=== PATIENT | male | born 1980 | race Caucasian/White ===

== ENCOUNTER 2016-10-03 11:52 | Emergency (ER) | payer OTHER ==
[2016-10-03] MEDS ORDERED: SODIUM CHLORIDE 0.9% 1,000 ML IV ONE (12:51)
[2016-10-03 12:56] LABS: Anisocytosis Slight; Basophils % (A) 0 %; CH 25.4; CHCM 31.8; Eosinophils # (A) 0.6 k/uL (0-0.7); Eosinophils % (A) 5 %; HCT 44.9 % (39.0-53.0); HDW 2.83; HGB 14.2 gm/dL (13.0-17.5); Hypochromasia Slight; Luc # (Auto) 0.27; Luc % (Auto) 2; Lymphocytes # (A) 1.6 k/uL (1.0-4.8); Lymphocytes % (A) 13 %; MCH 25.4 pg (25.0-35.0); MCHC 31.7 g/dL (31.0-37.0); MCV 80.4 fL (80.0-100.0); Mean Platelet Volume 6.7; Monocytes # (A) 0.9 k/uL (0-1.0); Monocytes % (A) 7 %; Neutrophils # (A) 8.9 k/uL (1.3-7.7); Neutrophils % (A) 73 %; RBC 5.59 m/uL (4.30-5.90); RDW 16.1 % (11.5-15.5); WBC 12.3 k/uL (3.8-10.6); WBC (Perox) 12.34
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
[2016-10-03 13:02] LABS: Anion Gap 11 mmol/L; Blood Urea Nitrogen 8 mg/dL (9-20); Calcium 9.9 mg/dL (8.4-10.2); Carbon Dioxide 28 mmol/L (22-30); Chloride 101 mmol/L (98-107); Glucose 114 mg/dL (74-99); Non-African American GFR(MDRD) >60 (>60 ml/min/1.73 sqM); Potassium 4.4 mmol/L (3.5-5.1); Sodium 140 mmol/L (137-145)
[2016-10-03 13:38] LABS: Appearance,Urine Clear (Clear); Bilirubin,Urine Negative (Negative); Glucose,Urine (UA) Negative (Negative); Ketones,Urine Negative (Negative); Leukocyte Esterase,Urine Negative (Negative); Nitrite,Urine Negative (Negative); Protein,Urine Negative (Negative); Specific Gravity,Urine 1.015 (1.001-1.035); UA Billing (MACRO vs. MICRO) CHEM; Urobilinogen,Urine <2.0 mg/dL (<2.0)
[2016-10-03 15:06] VITALS: BP 142/84; PULSE 100; RESP 18; TEMP 98.9
== END 2016-10-03 15:07 | disposition home or self-care (01) ==
LOC: EC 11:52
DX: T40.601A Poisoning by unspecified narcotics, accidental (unintentional), initial encounter (principal); I10 Essential (primary) hypertension; F41.9 Anxiety disorder, unspecified; Z87.891 Personal history of nicotine dependence; Z79.899 Other long term (current) drug therapy; Z88.0 Allergy status to penicillin; Z91.013 Allergy to seafood
CPT/HCPCS: 36415; 80048; 80306; 81003; 85025; 96360; 96361; 99284

== ENCOUNTER 2017-12-22 02:02 | Emergency (ER) | payer OTHER ==
[2017-12-22] MEDS ORDERED: ONDANSETRON 4 MG/2 ML VIAL IVP STA (02:21)
[2017-12-22] MEDS ORDERED: SODIUM CHLORIDE 0.9% 1,000 ML IV STA ×2 (02:21)
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
[2017-12-22 03:12] VITALS: BP 143/86; PULSE 90; RESP 16; TEMP 98.8
[2017-12-22 03:20] LABS: Basophils % (A) 0 %; Eosinophils # (A) 0.3 k/uL (0-0.7); Eosinophils % (A) 3 %; HCT 41.2 % (39.0-53.0); HGB 14.5 gm/dL (13.0-17.5); Lymphocytes % (A) 10 %; MCH 30.2 pg (25.0-35.0); MCHC 35.1 g/dL (31.0-37.0); Mean Platelet Volume 6.3; Monocytes # (A) 0.5 k/uL (0-1.0); Monocytes % (A) 5 %; Neutrophils # (A) 8.6 k/uL (1.3-7.7); Neutrophils % (A) 82 %; Platelet Count 272 k/uL (150-450); RBC 4.79 m/uL (4.30-5.90); RDW 15.8 % (11.5-15.5); WBC 10.6 k/uL (3.8-10.6)
[2017-12-22 03:26] LABS: ALT 26 U/L (21-72); AST 32 U/L (17-59); Albumin 4.6 g/dL (3.5-5.0); Alkaline Phosphatase 82 U/L (38-126); Anion Gap 18 mmol/L; Blood Urea Nitrogen 21 mg/dL (9-20); Calcium 10.7 mg/dL (8.4-10.2); Carbon Dioxide 26 mmol/L (22-30); Chloride 99 mmol/L (98-107); Glucose 91 mg/dL (74-99); Lipase 134 U/L (23-300); Sodium 143 mmol/L (137-145); Total Bilirubin 0.5 mg/dL (0.2-1.3); Total Protein 7.9 g/dL (6.3-8.2)
[2017-12-22 03:28] LABS: Appearance,Urine Clear (Clear); Bilirubin,Urine 1+ (Negative); Blood,Urine Negative (Negative); Color,Urine Yellow; Glucose,Urine (UA) Negative (Negative); Hyaline Casts,Urine 38 /lpf (0-2); Ketones,Urine 3+ (Negative); Leukocyte Esterase,Urine Negative (Negative); Mucus,Urine Occasional /hpf; Nitrite,Urine Negative (Negative); Protein,Urine 1+ (Negative); RBC,Urine 1 /hpf (0-5); Specific Gravity,Urine 1.038 (1.001-1.035); WBC,Urine 1 /hpf (0-5)
[2017-12-22 03:32] LABS: Amylase 314 U/L (30-110)
--- NOTE | 2017-12-22 04:14 | XR ---
EXAM: XR Abdomen, 1 View CLINICAL HISTORY: pain TECHNIQUE: Frontal supine view of the abdomen/pelvis. COMPARISON: No relevant prior studies available. FINDINGS: Gastrointestinal tract: Unremarkable. No dilation. Moderate amount of stool in the colon Bones/joints: Unremarkable. IMPRESSION: Normal abdominal x-ray.
[2017-12-22] MEDS ORDERED: ONDANSETRON 4 MG ODT STARTER PACK 2 TAB BTL PO STA (04:39)
== END 2017-12-22 04:59 | disposition home or self-care (01) ==
LOC: EC 02:02
DX: R11.2 Nausea with vomiting, unspecified (principal); R74.8 Abnormal levels of other serum enzymes; I10 Essential (primary) hypertension; F32.9 Major depressive disorder, single episode, unspecified; F17.200 Nicotine dependence, unspecified, uncomplicated; Z79.899 Other long term (current) drug therapy; Z88.0 Allergy status to penicillin; Z91.013 Allergy to seafood
CPT/HCPCS: 36415; 80053; 82150; 83690; 85025; 81001; 74018; 99284; 96374; 96361 ×2; J2405; S0119

== ENCOUNTER 2018-02-21 13:44 | Inpatient (IN) | payer MEDICAID, OTHER ==
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
[2018-02-21 16:01] LABS: Amphetamine Screen,Urine Detected (NotDetected); Barbiturate Screen,Urine Not Detected (NotDetected); Benzodiazepines Screen,Urine Detected (NotDetected); Cocaine Screen,Urine Not Detected (NotDetected); Methadone Screen, Urine Not Detected (NotDetected); Opiate Screen,Urine Not Detected (NotDetected); Oxycodone Screen, Urine Detected (NotDetected); Phencyclidine Screen,Urine Not Detected (NotDetected); Tricyclic Antidepressant,Urine Not Detected (NotDetected); Urn Cannabinoid Scrn Detected (NotDetected)
[2018-02-21] MEDS ORDERED: ZIPRASIDONE 20 MG VIAL IM PRN (17:03)
[2018-02-21] MEDS ORDERED: ACETAMINOPHEN TAB 325 MG TAB PO PRN (17:03)
[2018-02-21] MEDS ORDERED: MAG HYDROX/AL HYDROX/SIMETH 30 ML CUP PO PRN (17:03)
[2018-02-21] MEDS ORDERED: MAGNESIUM HYDROXIDE 2,400 MG/10 ML CUP PO PRN (17:03)
[2018-02-21] MEDS ORDERED: LORazepam 2 MG/ML INJ IM PRN (17:08)
[2018-02-21] MEDS ORDERED: BACLOFEN 10 MG TAB PO PRN (17:35)
[2018-02-21] MEDS ORDERED: BACLOFEN 10 MG TAB PO SCH (18:00)
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
[2018-02-21] MEDS: NICOTINE 21MG/24HR PATCH TRANSDERM SCH ×2 (18:48→19:13)
[2018-02-21] MEDS: NAPROXEN 250 MG TAB PO SCH ×2 (20:35→20:38)
[2018-02-21] MEDS: MIRTAZAPINE 15 MG TAB PO SCH ×2 (20:36→20:39)
[2018-02-21] MEDS: GABAPENTIN 400 MG CAP PO SCH (20:36)
[2018-02-21] MEDS: LORazepam 1 MG TAB PO PRN (20:38)
[2018-02-21] MEDS ORDERED: HYDROcodone/APAP 7.5-325MG 1 EACH TAB PO ONE (22:52)
[2018-02-22] MEDS: NICOTINE 21MG/24HR PATCH TRANSDERM SCH (08:28)
[2018-02-22] MEDS: GABAPENTIN 400 MG CAP PO SCH (08:28)
[2018-02-22] MEDS: LORazepam 1 MG TAB PO PRN (08:35)
[2018-02-22] MEDS: NAPROXEN 250 MG TAB PO SCH (08:35)
[2018-02-22 08:37] LABS: Basophils % (A) 0 %; Eosinophils # (A) 0.3 k/uL (0-0.7); Eosinophils % (A) 3 %; HCT 49.2 % (39.0-53.0); HGB 15.7 gm/dL (13.0-17.5); Lymphocytes # (A) 1.7 k/uL (1.0-4.8); Lymphocytes % (A) 17 %; MCHC 31.9 g/dL (31.0-37.0); MCV 87.8 fL (80.0-100.0); Mean Platelet Volume 6.9; Monocytes # (A) 0.7 k/uL (0-1.0); Monocytes % (A) 7 %; Neutrophils # (A) 7.2 k/uL (1.3-7.7); Neutrophils % (A) 72 %; Platelet Count 389 k/uL (150-450); RBC 5.61 m/uL (4.30-5.90); RDW 14.5 % (11.5-15.5)
[2018-02-22 08:52] LABS: Albumin 4.8 g/dL (3.5-5.0); Bilirubin, Delta 0.3 mg/dL (0.0-0.2); Bilirubin,Unconjugated 0.3 mg/dL (0.0-1.1); Calcium 11.3 mg/dL (8.4-10.2); Potassium 5.6 mmol/L (3.5-5.1); Total Bilirubin 0.6 mg/dL (0.2-1.3); Total Protein 7.9 g/dL (6.3-8.2)
[2018-02-22] MEDS ORDERED: LISINOPRIL 10 MG TAB PO SCH (09:00)
[2018-02-22] MEDS ORDERED: ATORVASTATIN 10 MG TAB PO SCH (09:00)
[2018-02-22 09:03] VITALS: BMI 24.1
[2018-02-22] MEDS ORDERED: traMADol 50 MG TAB PO PRN (12:40)
[2018-02-22] MEDS ORDERED: clonazePAM 1 MG TAB PO SCH (12:45)
[2018-02-22 13:30] VITALS: BP 132/84; PULSE 142; RESP 20; TEMP 98.4
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
[2018-02-22] MEDS ORDERED: SODIUM POLYSTYRENE SULFONATE 15 GM/60 ML BOTTLE PO ONE (14:21)
[2018-02-22] MEDS ORDERED: PRAZOSIN 1 MG CAP PO SCH (21:00)
== END 2018-02-22 14:44 | disposition short-term general hospital (02) | DRG 885 ==
LOC: EC 13:44 → 3MHU 16:17 → EEVIPCON 16:17 → 3MHU 16:34
PROVIDERS: ADMIT Psychiatry & Neurology Psychiatry; ATTEND Psychiatry & Neurology Psychiatry
DX: F33.2 Major depressive disorder, recurrent severe without psychotic features (principal); R45.851 Suicidal ideations; M50.00 Cervical disc disorder with myelopathy, unspecified cervical region; F17.200 Nicotine dependence, unspecified, uncomplicated; F41.0 Panic disorder [episodic paroxysmal anxiety]; F43.10 Post-traumatic stress disorder, unspecified; G89.29 Other chronic pain; I10 Essential (primary) hypertension; Z82.49 Family history of ischemic heart disease and other diseases of the circulatory system; Z98.1 Arthrodesis status; W20.1 Struck by object due to collapse of building; Z88.0 Allergy status to penicillin; Z91.013 Allergy to seafood; G47.9 Sleep disorder, unspecified; F41.9 Anxiety disorder, unspecified; Z79.899 Other long term (current) drug therapy; E78.5 Hyperlipidemia, unspecified
CPT/HCPCS: 80053; 80306; 82075; 82248; 84443; 85025; 93005

== ENCOUNTER 2018-02-22 13:01 | Observation (INO) | payer OTHER ==
[2018-02-22] MEDS ORDERED: DOCUSATE 100 MG CAP PO PRN (14:55)
[2018-02-22] MEDS ORDERED: NALOXONE 0.4 MG/ML 1 ML VIAL IV PRN (14:55)
[2018-02-22] MEDS ORDERED: ACETAMINOPHEN TAB 325 MG TAB PO PRN (14:55)
[2018-02-22] MEDS ORDERED: SODIUM POLYSTYRENE SULFONATE 15 GM/60 ML BOTTLE PO ONE (15:05)
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
[2018-02-22 15:35] VITALS: BMI 24.3
[2018-02-22] MEDS: HYDROcodone/APAP 5-325MG 1 EACH TAB PO PRN ×2 (15:39→20:37)
[2018-02-22] MEDS: GABAPENTIN 400 MG CAP PO SCH ×2 (15:40→22:46)
[2018-02-22] MEDS: SODIUM CHLORIDE 0.9% 1,000 ML IV SCH (15:40)
[2018-02-22] MEDS: clonazePAM 1 MG TAB PO SCH ×2 (15:44→20:38)
[2018-02-22] MEDS: traMADol 50 MG TAB PO PRN (17:55)
[2018-02-22] MEDS: FAMOTIDINE 20 MG TAB PO SCH (20:33)
[2018-02-22] MEDS ORDERED: MIRTAZAPINE 15 MG TAB PO SCH ×2 (21:00)
[2018-02-22 22:43] VITALS: RESP 18
[2018-02-23] MEDS: SODIUM CHLORIDE 0.9% 1,000 ML IV SCH (00:16)
[2018-02-23] MEDS: BACLOFEN 10 MG TAB PO PRN ×2 (00:17→08:46)
[2018-02-23] MEDS: traMADol 50 MG TAB PO PRN ×2 (00:21→06:03)
[2018-02-23] MEDS: HYDROcodone/APAP 5-325MG 1 EACH TAB PO PRN ×5 (00:50→16:47)
[2018-02-23] MEDS: clonazePAM 1 MG TAB PO SCH ×2 (04:51→15:21)
[2018-02-23 05:04] LABS: Anion Gap 7 mmol/L; Blood Urea Nitrogen 19 mg/dL (9-20); Carbon Dioxide 26 mmol/L (22-30); Chloride 108 mmol/L (98-107); Creatine Kinase 167 U/L (55-170); Glucose 91 mg/dL (74-99); Magnesium 1.7 mg/dL (1.6-2.3); Potassium 4.2 mmol/L (3.5-5.1); Sodium 141 mmol/L (137-145)
[2018-02-23] MEDS: GABAPENTIN 400 MG CAP PO SCH ×2 (08:45→15:21)
[2018-02-23] MEDS: FAMOTIDINE 20 MG TAB PO SCH (08:46)
[2018-02-23 08:54] VITALS: TEMP 98.6
[2018-02-23] MEDS ORDERED: NICOTINE 21MG/24HR PATCH TRANSDERM SCH (09:00)
[2018-02-23] MEDS ORDERED: amLODIPine 5 MG TAB PO SCH (09:00)
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
--- NOTE | 2018-02-23 14:57 | P.CN ---
Psychiatric Consult - . Consult date: 02/23/18 Consult:: 02/23/18 14:45 Identification: Patient is a 38-year-old male who would been admitted to the psychiatric inpatient unit because he became very stressed out and overwhelmed due to chronic pain. He presented to the emergency room requesting help was admitted to the psychiatric unit and transferred to the medical floor. Reason for Consult: Depression History of Present Illness: Patient's chart was reviewed and he was seen and interviewed in his room. Patient states that he had been on Suboxone which she stopped because it was making him physically ill. He states he was only using medical marijuana for his pain and his pain increased to the point where he was overwhelmed and exceedingly stressed with it. He states he was not suicidal on admission and states that he told them that he was going to snap if he wasn't admitted. However he told the admitting psychiatrist that he was overwhelmed and would kill himself. Patient denied that he said this on admission. Patient sees Dr. Wen as an outpatient and is maintained on Xanax 3.5 mg per day, Adderall 10 mg 3 times a day and Remeron 15 mg at bedtime. Patient states that he saw Dr. Wen in mid January and also sees a therapist in the office. He states that he was doing well when he saw Dr. Wen and did not have the concerns that he presented with to the emergency room. Patient states that he was feeling extremely anxious in the emergency room, irritable and was having a great deal of difficulty tolerating the pain he was having and states that he was overly stressed. Patient has a history of suicidal ideation but no history of suicide attempts in the past. Patient has been seeing Dr. Wen for some time. Patient states that he has an appointment tomorrow at 4 PM and [place] at a pain center with a pain physician to discuss treatment options. Patient states since his transfer to the medical floor and being placed on pain medication he is no longer feeling stressed or overwhelmed as he was when he was in the emergency room. He reported to me that he was not feeling suicidal and was no longer feeling as though he was going to snap. He feels the increase in his Remeron to 30 mg at bedtime has been beneficial as well. Patient states that he is no longer feeling anxious and states that he has been eating and sleeping well while he has been on the medical floor. Patient's presented later in the interview and she was comfortable with the fact that he was having an appointment tomorrow with a pain physician. Patient states he's been treated for PTSD and a history of depression, stating that he worked in [place] after [place] and continues to have difficulties with nightmares and flashbacks. Patient denied any current or prior psychotic symptoms and no evidence of manic symptoms. Patient denied any OCD symptoms. Patient does use medical marijuana to treat his pain. Past Psychiatric History: Patient has no history of inpatient psychiatric admissions other than his brief stay here, has been seeing Dr. Wen as an outpatient. His medications had been 3.5 mg of Xanax per day, Adderall 10 mg 3 times a day and Remeron 15 mg at bedtime. Past Medical/Surgical History: Patient has a history of hypertension, herniated disks Social History: Patient is and currently is on disability due to his herniated disks. Substance Use History: Patient denies any current alcohol use, denies any drug use and states that he does use medical marijuana. Mental status: Appearance/Attitude: Patient is casually dressed sitting in a hospital bed in no acute distress, makes good eye contact and was cooperative. Behavior: Patient did not exhibit any psychomotor agitation or retardation Speech/Language: Patient's speech was spontaneous of normal volume and rhythm and he was coherent Thought Process: Patient was goal-directed there is no evidence of loose association or flight of ideas Thought Content: Patient denied any auditory or visual hallucinations no paranoid or delusional ideation was elicited. The patient states that he felt stressed, overwhelmed and ready to snap when he presented to the emergency room due to ongoing untreated back pain. Patient states that he had been on Suboxone but had side effects from the Suboxone and so stopped it and his back pain continued to increase. Patient states that he has been sleeping and feeling better on the medical floor now that his pain has been treated. Suicidal/Homicidal Ideation: Patient denies any current suicidal or homicidal ideation Sensorium/Cognition: Patient is alert and oriented to person, place, and time and his recent and remote memory are grossly intact Mood/Affect: Patient's mood is pleasant and his affect is appropriate Insight/Judgment: Patient's insight and judgment are fair Assessment: Patient has been treated by Dr. Wen on Xanax, Adderall and Remeron, he was admitted to the psychiatric unit due to presenting to the emergency room with suicidal statements as well as feeling overwhelmed and stressed he was changed to Klonopin 1 mg 3 times a day and his Remeron was increased to 30 mg at bedtime. Patient feels that the increase in Remeron has been beneficial as he feels calm her, and is sleeping better. Patient states that he has an appointment scheduled tomorrow with a pain doctor at the pain Center in [facility] at 4 PM. His was present and she also concurred that that appointment was scheduled. Patient states that he is not having any suicidal thoughts, no homicidal thoughts and is no longer feeling stressed now that his pain is treated. Patient is not reporting feeling depressed, anxious and there is no evidence of any psychotic symptoms. Diagnosis: Major depressive disorder, recurrent, moderate severity; history of ADD, history of PTSD Plan: Patient is not acutely psychotic nor is he currently having any suicidal or homicidal thoughts and therefore does not require transfer back to the inpatient psychiatric unit. I would recommend the patient restarting his Xanax at the doses that Dr. Wen had been prescribing him continue him on the increased dose of Remeron at 30 mg at bedtime. I discussed with the patient that he can restart his Adderall was suggested that the third dose not be taking any later than for the afternoon to prevent sleep disturbance. I spoke with Harmeet the social media sr strategy manager and suggested that an earlier appointment with Dr. Wen try to be made as well as an appointment with his therapist Rhea at the same office. Patient was encouraged to follow-up with his appointment tomorrow with the pain clinic and I suggested to him that he take his prescription bottles with him to show that he is prescribed Xanax, Remeron and Adderall. Patient voiced no other concerns and states that he had sufficient medication at home as he had recently filled his Xanax 1 mg tablets numbers 105 on February 03, he has Adderall was filled #10 mg on February 03 as well numbers 90 both checked on [facility]. There are any further questions or concerns please and hesitate to contact me
[2018-02-23 15:01] VITALS: BP 118/81; PULSE 98
--- NOTE | 2018-02-23 15:18 | P.DS ---
Providers Date of admission: 02/22/18 14:56 Expected date of discharge: 02/23/18 Attending physician: Tonia Quinn DO Consults: 02/22/18 15:01 Consult Physician Routine Consulting Provider: Christal Quesada Consult Reason/Comments: Depression Do you want consulting provider notified?: Yes Primary care physician: Stated None Hospital Course: admission diagnosis: Depression Neck pain Discharge diagnosis: 1. Neck pain 2. Acute kidney injury 3. Hyperkalemia 4. Depression Consultants: Psychiatry Procedures and studies done on this admission: None Significant results: Potassium 5.6 Creatinine 1.3 Urine drug screen positive for amphetamines: Marijuana: Benzodiazepines Reason for admission: This is a 38-year-old male with history of chronic neck pain and history of laminectomy 4 years ago, hypertension, depression, polysubstance abuse, who came to emergency department complaining of worsening depression and anxiety that he ascribes to worsening of his neck pain. Patient has long-standing history of neck pain, laminectomy, and follow-up with pain clinics in the area. Apparently he was on Suboxone up to a month ago and then decided to take him off of Suboxone due to the side effects. Since that he's been experiencing worsening of the neck pain which was causing also frustration, anxiety and depression to him. Hospital course: Patient was initially found to be depressed and potentially suicidal and he was initially admitted to mental health unit. Due to elevation in creatinine and elevation in potassium he was transferred to medical floor and admitted under medicine further management and management of this. His lisinopril was stopped and the also he was advised not to use NSAIDs anymore. He was given IV fluids. 4 history of hypertension he was started on amlodipine. With this management his creatinine and potassium normalized and his urine output was stable. I fluids were discontinued. His blood pressure standing on the soft side so it was decided to discontinue amlodipine as well. Regarding his neck pain he was initially treated with tramadol and he his gabapentin from home was continued. Regarding depression he was reevaluated by psychiatry. They started him on the Remeron. Advised against benzodiazepines at this moment or opiate pain medications at this moment. The team patient stable for discharge with follow- up in their office. He is also has scheduled a follow-up appointment pain clinic in 4 and for the day after discharge. Patient also informed us that he has prescription for MRI of cervical spine and he is going to obtain one. Discharge, this point and medications: At this point of time we decided not to discharge patient on tobacco lisinopril as his blood pressure here and due to recent hyperkalemia and acute kidney injury. He is advised to follow up closely with primary care physician regarding his blood pressures and repeated blood work in one week. We gave the referral to the physician in the area. Regarding his neck pain and will follow-up with pain clinic tomorrow. He is to fulfill his MRI scrips on outpatient basis and then further. Referred dependent the results. Regarding the pressure he is to follow-up with psychiatry service. Psychiatry service advised to discharge patient on Remeron. 10 day supply of Remeron provided. Disposition: Home Patient Condition at Discharge: Fair Plan - Discharge Summary New Discharge Prescriptions: New Acetaminophen Tab [Tylenol] 650 mg PO Q6HR PRN tab PRN Reason: Mild Pain Or Fever > 100.5 clonazePAM [KlonoPIN] 1 mg PO TID tab Mirtazapine [Remeron] 30 mg PO HS #10 tab Continue Gabapentin 800 mg PO Q8H Discontinued Dextroamphetamine/Amphetamine [Adderall] 15 mg PO BID Simvastatin [Zocor] 20 mg PO DAILY ALPRAZolam [Xanax] 1 mg PO QID@08,12,16 Naproxen Sodium [Anaprox DS] 550 mg PO BID Mirtazapine [Remeron] 15 mg PO HS Baclofen 10 mg PO QID Testosterone Cypionate [Depo-Testosterone] 200 mg IM SA Lisinopril [Zestril] 10 mg PO DAILY Discharge Medication List Gabapentin 800 mg PO Q8H 02/21/18 [History] Acetaminophen Tab [Tylenol] 650 mg PO Q6HR PRN tab 02/23/18 [Rx] Mirtazapine [Remeron] 30 mg PO HS #10 tab 02/23/18 [Rx] clonazePAM [KlonoPIN] 1 mg PO TID tab 02/23/18 [Rx] Follow up Appointment(s)/Referral(s): Kanu Rubio MD [STAFF PHYSICIAN] - 1 Week Activity/Diet/Wound Care/Special Instructions: Regular diet Preadmission activity Care Plan Goals (MU): Make sure you follow up with MRI of your neck as discussed Discharge Disposition: HOME SELF-CARE
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
--- NOTE | 2018-02-23 16:58 | MR ---
EXAMINATION TYPE: MR cervical spine wo/w con DATE OF EXAM: 02/23/2018 COMPARISON: None. HISTORY: Neck fusion, pain with limited range of motion. TECHNIQUE: Multiplanar, multisequence images of the cervical spine were acquired utilizing 7.5 mL int ravenous Gadavist gadolinium contrast. FINDINGS: The gadolinium contrast enhancement pattern is normal. The intramedullary examination is negative, with normal morphology and signal characteristics noted. The extra medullary/intradural examination is negative. The intradural examination shows postoperative expected C4-6 anterior fusion changes. There is no kinsey dence of nerve root impingement. Neuroforamina are patent bilaterally levels. No mass effect upon the cord at any level. Cervical segments are intact. There is normal alignment. Cervical spinal cord is of normal signal. Craniovertebral junction relationships are within normal limits. Extraspinal soft tissues are negative for incidental findings. IMPRESSION: NO ACUTE PROCESS; CERVICAL SPINE MRI WITHOUT AND WITH INTRAVENOUS GADOLINIUM CONTRAST.
== END 2018-02-23 17:12 | disposition home or self-care (01) ==
LOC: 6SEL 14:56
PROVIDERS: ADMIT Internal Medicine; ATTEND Internal Medicine
DX: M54.2 Cervicalgia (principal); N17.9 Acute kidney failure, unspecified; E87.5 Hyperkalemia; F23 Brief psychotic disorder; R45.851 Suicidal ideations; R00.0 Tachycardia, unspecified; E83.52 Hypercalcemia; E86.0 Dehydration; F90.9 Attention-deficit hyperactivity disorder, unspecified type; F43.10 Post-traumatic stress disorder, unspecified; F32.9 Major depressive disorder, single episode, unspecified; F41.9 Anxiety disorder, unspecified; E78.5 Hyperlipidemia, unspecified; G95.9 Disease of spinal cord, unspecified; F17.210 Nicotine dependence, cigarettes, uncomplicated; R80.9 Proteinuria, unspecified; M51.26 Other intervertebral disc displacement, lumbar region; F12.10 Cannabis abuse, uncomplicated; N52.8 Other male erectile dysfunction; T40.4X5A Adverse effect of other synthetic narcotics, initial encounter; I10 Essential (primary) hypertension; Z88.0 Allergy status to penicillin; Z91.013 Allergy to seafood; Z98.1 Arthrodesis status; Z79.1 Long term (current) use of non-steroidal anti-inflammatories (NSAID); Z79.899 Other long term (current) drug therapy; Z87.09 Personal history of other diseases of the respiratory system; Z82.49 Family history of ischemic heart disease and other diseases of the circulatory system
CPT/HCPCS: 96360; 96361; 80048; 82550; 83735; 84484; 83970; 72156; G0378 ×2; G0379; S4990; A9581

== ENCOUNTER 2018-10-16 12:40 | Emergency (ER) | payer OTHER ==
[2018-10-16 12:52] VITALS: TEMP 98.4
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
[2018-10-16] MEDS ORDERED: MORPHINE SULFATE 4 MG/ML SYRINGE IVP STA (14:01)
[2018-10-16 14:15] LABS: Basophils % (A) 1 %; Eosinophils # (A) 0.4 k/uL (0-0.7); Eosinophils % (A) 5 %; HCT 30.6 % (39.0-53.0); HGB 9.8 gm/dL (13.0-17.5); Hypochromasia Marked; Lymphocytes # (A) 1.3 k/uL (1.0-4.8); Lymphocytes % (A) 17 %; MCV 78.2 fL (80.0-100.0); Mean Platelet Volume 6.4; Microcytosis Slight; Monocytes # (A) 0.4 k/uL (0-1.0); Monocytes % (A) 6 %; Neutrophils # (A) 5.3 k/uL (1.3-7.7); Neutrophils % (A) 70 %; Platelet Count 502 k/uL (150-450); Poikilocytosis Slight; RBC 3.91 m/uL (4.30-5.90); WBC 7.6 k/uL (3.8-10.6)
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
[2018-10-16 14:23] LABS: ALT 37 U/L (21-72); AST 30 U/L (17-59); Alcohol <10 mg/dL; Alkaline Phosphatase 62 U/L (38-126); Anion Gap 7 mmol/L; Blood Urea Nitrogen 24 mg/dL (9-20); Calcium 9.7 mg/dL (8.4-10.2); Carbon Dioxide 23 mmol/L (22-30); Chloride 109 mmol/L (98-107); Glucose 89 mg/dL (74-99); Potassium 4.5 mmol/L (3.5-5.1); Sodium 139 mmol/L (137-145); Total Bilirubin 0.4 mg/dL (0.2-1.3); Total Protein 6.6 g/dL (6.3-8.2)
[2018-10-16 14:32] LABS: INR 0.9 (<1.2); Partial Thromboplastin Time 24.2 sec (22.0-30.0)
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
[2018-10-16 16:12] LABS: Anisocytosis Slight; Basophils % (A) 1 %; Eosinophils # (A) 0.3 k/uL (0-0.7); Eosinophils % (A) 5 %; HCT 29.9 % (39.0-53.0); HGB 9.2 gm/dL (13.0-17.5); Hypochromasia Slight; Lymphocytes # (A) 1.7 k/uL (1.0-4.8); Lymphocytes % (A) 25 %; MCH 23.5 pg (25.0-35.0); MCHC 30.9 g/dL (31.0-37.0); MCV 76.2 fL (80.0-100.0); Mean Platelet Volume 6.2; Microcytosis Slight; Monocytes # (A) 0.5 k/uL (0-1.0); Monocytes % (A) 7 %; Neutrophils # (A) 4.2 k/uL (1.3-7.7); Neutrophils % (A) 62 %; Platelet Count 453 k/uL (150-450); RBC 3.92 m/uL (4.30-5.90); RDW 16.4 % (11.5-15.5); WBC 6.9 k/uL (3.8-10.6)
[2018-10-16 16:31] VITALS: BP 99/70; PULSE 70; RESP 16
== END 2018-10-16 16:37 | disposition home or self-care (01) ==
LOC: EEVIPCON 12:40 → EC 12:40
DX: M54.9 Dorsalgia, unspecified (principal); D64.9 Anemia, unspecified; M54.2 Cervicalgia; R51 Headache; R10.13 Epigastric pain; M25.559 Pain in unspecified hip; I10 Essential (primary) hypertension; F17.200 Nicotine dependence, unspecified, uncomplicated; Z98.1 Arthrodesis status; Z79.899 Other long term (current) drug therapy; Z88.0 Allergy status to penicillin; Z91.013 Allergy to seafood; V89.2XXA Person injured in unspecified motor-vehicle accident, traffic, initial encounter; Y92.89 Other specified places as the place of occurrence of the external cause
CPT/HCPCS: 36415; 93005; 86900; 86901; 80053; 84484; 85025; 85610; 85730; 86850; 80320; 72170; 71045; 72125; 70450; 71260; 74177; 99285; 96374; J2270; Q9967

== ENCOUNTER 2023-10-05 09:50 | Emergency (ER) | payer OTHER ==
[2023-10-05 10:04] VITALS: RESP 18
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
--- NOTE | 2023-10-05 10:56 | XR ---
EXAMINATION TYPE: XR knee 4V RT DATE OF EXAM: 10/05/2023 10:37 AM CLINICAL INDICATION:Male, 43 years old with history of Injury; COMPARISON: None. TECHNIQUE: XR knee 4V RT; examined in Frontal, lateral and oblique projections. FINDINGS: No evidence of any acute osseous pathology, soft tissue swelling, or joint effusion is no adin. Tricompartmental osteophyte formation involving the femoral condyles, tibial plateau and patella . Mild joint space narrowing. IMPRESSION: 1. No acute osseous pathology. 2. Mild tricompartmental osteoarthritic changes.
[2023-10-05 11:43] VITALS: BP 168/100; PULSE 90; TEMP 98.2
== END 2023-10-05 11:30 | disposition home or self-care (01) ==
LOC: EC 09:50
DX: S86.911A Strain of unspecified muscle(s) and tendon(s) at lower leg level, right leg, initial encounter (principal); F17.200 Nicotine dependence, unspecified, uncomplicated; Z88.0 Allergy status to penicillin; Z91.013 Allergy to seafood; X50.9XXA Other and unspecified overexertion or strenuous movements or postures, initial encounter